=== PATIENT | male | born 1935 | race Caucasian/White ===

== ENCOUNTER 2017-08-29 11:16 | Emergency (ER) | payer OTHER, MEDICARE ==
[~2017-08-29] VITALS: Ht 170.2 cm; Wt 81.0 kg
[~2017-08-29 11:16] MED LIST: ALBU8HFA PO; ALLO100T PO; ALPR-624 PO; ASPI81TA52 PO; BUDE0.5A11 IH; CARV-50 PO; CLOP75TA35 PO; DOCU100C38 PO; FINA1TAB11 PO; FURO-150 PO
[2017-08-29] MEDS ORDERED: LIDOcaine 1.5% w/epinephrine 1:200,000 5ml ampul IJ ONE (11:30)
[2017-08-29 12:15] VITALS: BP 112/69
== END 2017-08-29 12:30 | disposition home or self-care (01) ==
LOC: ER 11:16
DX: I83.891 Varicose veins of right lower extremity with other complications (principal); I11.0 Hypertensive heart disease with heart failure; I50.9 Heart failure, unspecified; I25.10 Atherosclerotic heart disease of native coronary artery without angina pectoris; I48.91 Unspecified atrial fibrillation; K21.9 Gastro-esophageal reflux disease without esophagitis; E11.9 Type 2 diabetes mellitus without complications; J44.9 Chronic obstructive pulmonary disease, unspecified; G89.29 Other chronic pain; Z90.49 Acquired absence of other specified parts of digestive tract; Z95.0 Presence of cardiac pacemaker; Z95.1 Presence of aortocoronary bypass graft; Z79.01 Long term (current) use of anticoagulants; Z88.8 Allergy status to other drugs, medicaments and biological substances; Z79.899 Other long term (current) drug therapy
CPT/HCPCS: 12001; 99283; A6253; J3490